=== PATIENT | male | born 1965 | race Caucasian/White ===

== ENCOUNTER 2024-08-26 15:36 | Observation (INO) ==
[2024-08-26] MEDS: KETOROLAC 15 MG/ML VIAL IV ONE (16:19)
[2024-08-26] MEDS: LORazepam 2 MG/ML VIAL IV ONE (16:20)
[2024-08-26] MEDS: HYDROmorphone 0.5 MG/0.5 ML SYRINGE IV PRN (17:51)
[2024-08-26] MEDS: HYDROcodone/APAP 5/325MG TABLET PO PRN (18:44)
[2024-08-26] MEDS: DEXTROSE 5%-LR 1,000 ML IV SCH (19:00)
[2024-08-26] MEDS: KETOROLAC 15 MG/ML VIAL IV SCH (21:19)
[2024-08-26] MEDS: ACETAMINOPHEN 650 MG/65 ML BAG IV PRN (21:19)
[2024-08-27] MEDS: PANTOPRAZOLE 40 MG TABLET PO SCH (07:18)
[2024-08-27] MEDS: ONDANSETRON 4 MG ODT TABLET SL PRN (11:12)
[2024-08-27] MEDS ORDERED: LORazepam 2 MG/ML VIAL IV PRN (15:52)
== END 2024-08-28 12:22 | disposition home or self-care (01) ==
LOC: ED 15:36 → MEDSUR 15:36
PROVIDERS: ADMIT Surgery Surgical Critical Care; ATTEND Surgery Surgical Critical Care